=== PATIENT | female | born 2000 | race Two or more races ===

== ENCOUNTER 2025-02-28 14:28 | Outpatient (CLI) | payer OTHER ==
[2025-03-01 11:17] LABS: Hepatitis B Surface Antibody Positive (Negative); Hepatitis B Surface Antigen Negative (Negative)
== END 2025-02-28 17:00 | disposition home or self-care (01) ==
LOC: LAB 14:28
PROVIDERS: ATTEND Family Medicine
DX: S61.232A Puncture wound without foreign body of right middle finger without damage to nail, initial encounter (principal); Z77.21 Contact with and (suspected) exposure to potentially hazardous body fluids; Z20.6 Contact with and (suspected) exposure to human immunodeficiency virus [HIV]; X58.XXXA Exposure to other specified factors, initial encounter; Y93.89 Activity, other specified; Y92.89 Other specified places as the place of occurrence of the external cause; Y99.8 Other external cause status
CPT/HCPCS: 36415; 86703; 86706; 86803; 87340

== ENCOUNTER → 2025-04-12 | Outpatient (CLI) | payer OTHER ==
[2025-04-12 14:57] LABS: Hepatitis B Surface Antigen Negative (Negative)
== END | disposition home or self-care (01) ==
LOC: LAB 13:32
PROVIDERS: ATTEND Family Medicine
DX: G61.89 Other inflammatory polyneuropathies (principal); Z77.21 Contact with and (suspected) exposure to potentially hazardous body fluids; Z20.6 Contact with and (suspected) exposure to human immunodeficiency virus [HIV]
CPT/HCPCS: 36415; 86703; 86706; 86803; 87340